=== PATIENT | male | born 1975 | race Caucasian/White ===

== ENCOUNTER 2019-10-08 13:40 | Emergency (ER) | payer MEDICAID ==
[~2019-10-08] VITALS: Ht 165.1 cm; Wt 79.0 kg
[2019-10-08 16:30] VITALS: BP 127/68
== END 2019-10-08 17:23 | disposition home or self-care (01) ==
LOC: EMS 13:45
DX: R05 Cough (principal); I10 Essential (primary) hypertension; E78.00 Pure hypercholesterolemia, unspecified; J45.909 Unspecified asthma, uncomplicated